=== PATIENT | male | born 1955 | race Caucasian/White ===

== ENCOUNTER → 2023-10-03 13:02 | Outpatient (REF) | payer MEDICARE, SELFPAY ==
[2023-10-03 16:04] LABS: % Basophils 0.6 % (0-2); % Eosinophils 6.8 % (0-6); % Immature Granulocytes 0.5 % (0-0.5); % Lymphocytes 21.1 % (20.5-51.1); % Monocytes 10.8 % (1.7-9.3); % Neutrophils 60.2 % (42.2-75.2); Absolute Basophils 0.1 10^3/uL (0-0.2); Absolute Eosinophils 0.6 10^3/uL (0-0.7); Absolute Immature Granulocytes 0.1 10^3/uL (0-0.05); Absolute Neutrophils 5.6 10^3/uL (1.4-6.5); Hematocrit 42.9 % (39.0-52.0); Mean Corp Hgb Conc. 32.6 g/dL (33.0-37.0); Mean Corpuscular Volume 95.1 fL (80.0-94.0); Nucleated Red Blood Cells % 0 % (-); Platelet Count 172 10^3/uL (130-400); Red Blood Cell Count 4.51 10^6/uL (4.70-6.10); Red Cell Dist. Width 14.3 % (11.5-14.5); White Blood Cell Count 9.2 10^3/uL (4.8-10.8)
[2023-10-03 16:28] LABS: Iron 92 ug/dl (49-181)
[2023-10-03 16:37] LABS: Percent Saturation 34 % (20-50); Total Iron Binding Capacity 265 ug/dl (261-462)
[2023-10-03 17:03] LABS: Ferritin 61.1 ng/ml (17.9-464.0)
[2023-10-03 17:34] LABS: Folate 2.9 ng/ml (2.76-20); Vitamin B12 368 pg/ml (239-931)
== END ==
LOC: HWLAB 13:02
PROVIDERS: ATTENDING PHYSICIAN Internal Medicine Hematology & Oncology; FAMILY PHYSICIAN Family Medicine
DX: D50.9 Iron deficiency anemia, unspecified (principal); D51.9 Vitamin B12 deficiency anemia, unspecified; I48.0 Paroxysmal atrial fibrillation
CPT/HCPCS: 36415; 82607; 82728; 82746; 83540; 83550; 85025

== ENCOUNTER → 2024-01-16 13:45 | Outpatient (REF) | payer MEDICARE, SELFPAY ==
[2024-01-16 15:40] LABS: % Basophils 0.8 % (0-2); % Eosinophils 8.9 % (0-6); % Immature Granulocytes 0.4 % (0-0.5); % Lymphocytes 24.7 % (20.5-51.1); % Monocytes 14.7 % (1.7-9.3); % Neutrophils 50.5 % (42.2-75.2); Absolute Basophils 0.1 10^3/uL (0-0.2); Absolute Eosinophils 0.8 10^3/uL (0-0.7); Absolute Lymphocytes 2.3 10^3/uL (1.2-3.4); Absolute Monocytes 1.4 10^3/uL (0.1-0.6); Absolute Neutrophils 4.8 10^3/uL (1.4-6.5); Hemoglobin 13.4 g/dL (13.0-18.0); Mean Corp Hgb Conc. 33.5 g/dL (33.0-37.0); Mean Corpuscular Hgb 30.7 pg (27.0-31.0); Mean Corpuscular Volume 91.5 fL (80.0-94.0); Mean Platelet Volume 12.1 fL (7.4-10.4); Nucleated Red Blood Cells % 0 % (-); Platelet Count 205 10^3/uL (130-400); Red Blood Cell Count 4.37 10^6/uL (4.70-6.10); Red Cell Dist. Width 14.7 % (11.5-14.5); White Blood Cell Count 9.4 10^3/uL (4.8-10.8)
[2024-01-16 15:56] LABS: Iron 69 ug/dl (49-181)
[2024-01-16 16:06] LABS: Erythrocyte Sed Rate 20 mm/hour (0-20); Percent Saturation 26 % (20-50); Total Iron Binding Capacity 260 ug/dl (261-462)
[2024-01-16 16:27] LABS: Ferritin 44.1 ng/ml (17.9-464.0)
[2024-01-16 16:58] LABS: Folate 2.1 ng/ml (2.76-20); Vitamin B12 357 pg/ml (239-931)
== END ==
LOC: HWLAB 13:45
PROVIDERS: ATTENDING PHYSICIAN Internal Medicine Hematology & Oncology; FAMILY PHYSICIAN Family Medicine
DX: D50.9 Iron deficiency anemia, unspecified (principal); D51.9 Vitamin B12 deficiency anemia, unspecified
CPT/HCPCS: 36415; 82607; 82728; 82746; 83540; 83550; 85025; 85652

== ENCOUNTER → 2024-05-03 13:25 | Outpatient (REF) | payer MEDICARE, SELFPAY ==
[2024-05-03 14:06] LABS: % Basophils 0.8 % (0-2); % Eosinophils 3.9 % (0-6); % Immature Granulocytes 0.9 % (0-0.5); % Monocytes 10.4 % (1.7-9.3); Absolute Basophils 0.1 10^3/uL (0-0.2); Absolute Eosinophils 0.4 10^3/uL (0-0.7); Absolute Immature Granulocytes 0.1 10^3/uL (0-0.05); Absolute Lymphocytes 1.9 10^3/uL (1.2-3.4); Absolute Neutrophils 6.4 10^3/uL (1.4-6.5); Hematocrit 42.3 % (39.0-52.0); Hemoglobin 13.9 g/dL (13.0-18.0); Mean Corp Hgb Conc. 32.9 g/dL (33.0-37.0); Mean Corpuscular Hgb 29.1 pg (27.0-31.0); Mean Corpuscular Volume 88.5 fL (80.0-94.0); Mean Platelet Volume 11.1 fL (7.4-10.4); Nucleated Red Blood Cells % 0 % (-); Platelet Count 188 10^3/uL (130-400); Red Blood Cell Count 4.78 10^6/uL (4.70-6.10); White Blood Cell Count 9.9 10^3/uL (4.8-10.8)
[2024-05-03 14:41] LABS: Iron 116 ug/dl (49-181)
[2024-05-03 14:50] LABS: Percent Saturation 40 % (20-50); Total Iron Binding Capacity 283 ug/dl (261-462)
[2024-05-03 15:15] LABS: Ferritin 42.1 ng/ml (17.9-464.0)
[2024-05-03 15:46] LABS: Folate > 20.0 ng/ml (2.76-20); Vitamin B12 419 pg/ml (239-931)
== END ==
LOC: REG 13:25
PROVIDERS: ATTENDING PHYSICIAN Internal Medicine Hematology & Oncology; FAMILY PHYSICIAN Family Medicine
DX: D50.9 Iron deficiency anemia, unspecified (principal); D51.9 Vitamin B12 deficiency anemia, unspecified; D52.9 Folate deficiency anemia, unspecified; I48.0 Paroxysmal atrial fibrillation
CPT/HCPCS: 36415; 82607; 82728; 82746; 83540; 83550; 85025

== ENCOUNTER → 2024-07-30 13:26 | Outpatient (REF) | payer MEDICARE, SELFPAY ==
[2024-07-30 15:27] LABS: % Basophils 0.4 % (0-2); % Immature Granulocytes 1.9 % (0-0.5); % Lymphocytes 23.9 % (20.5-51.1); % Monocytes 11.2 % (1.7-9.3); % Neutrophils 61.6 % (42.2-75.2); Absolute Basophils 0.1 10^3/uL (0-0.2); Absolute Eosinophils 0.2 10^3/uL (0-0.7); Absolute Immature Granulocytes 0.3 10^3/uL (0-0.05); Absolute Lymphocytes 3.6 10^3/uL (1.2-3.4); Absolute Monocytes 1.7 10^3/uL (0.1-0.6); Absolute Neutrophils 9.3 10^3/uL (1.4-6.5); Hemoglobin 14.5 g/dL (13.0-18.0); Mean Corp Hgb Conc. 32.2 g/dL (33.0-37.0); Mean Corpuscular Hgb 30.1 pg (27.0-31.0); Mean Corpuscular Volume 93.6 fL (80.0-94.0); Mean Platelet Volume 11.4 fL (7.4-10.4); Nucleated Red Blood Cells % 0 % (-); Platelet Count 203 10^3/uL (130-400); Red Blood Cell Count 4.81 10^6/uL (4.70-6.10); Red Cell Dist. Width 14.3 % (11.5-14.5)
[2024-07-30 15:47] LABS: Iron 124 ug/dl (49-181)
[2024-07-30 15:56] LABS: Percent Saturation 44 % (20-50); Total Iron Binding Capacity 281 ug/dl (261-462)
[2024-07-30 16:53] LABS: Folate > 20.0 ng/ml (2.76-20); Vitamin B12 413 pg/ml (239-931)
== END ==
LOC: HWLAB 13:26
PROVIDERS: ATTENDING PHYSICIAN Internal Medicine Hematology & Oncology; FAMILY PHYSICIAN Family Medicine
DX: D50.9 Iron deficiency anemia, unspecified (principal); D51.9 Vitamin B12 deficiency anemia, unspecified; D52.9 Folate deficiency anemia, unspecified
CPT/HCPCS: 36415; 82607; 82728; 82746; 83540; 83550; 85025

== ENCOUNTER → 2024-08-12 15:56 | Outpatient (REF) | payer MEDICARE, SELFPAY | LOC: HWRCS 15:56 | PROVIDERS: ATTENDING PHYSICIAN Internal Medicine Cardiovascular Disease; FAMILY PHYSICIAN Family Medicine | DX: I48.0 Paroxysmal atrial fibrillation (principal) | CPT/HCPCS: 93306 ==

== ENCOUNTER → 2024-12-18 14:43 | Outpatient (REF) | payer MEDICARE, SELFPAY | LOC: HWRAD 14:43 | PROVIDERS: ATTENDING PHYSICIAN Internal Medicine; FAMILY PHYSICIAN Family Medicine | DX: R91.1 Solitary pulmonary nodule (principal) | CPT/HCPCS: 71250 ==

== ENCOUNTER → 2025-02-14 12:27 | Outpatient (REF) | payer MEDICARE, SELFPAY ==
[2025-02-14 15:55] LABS: % Basophils 0.7 % (0-2); % Eosinophils 8.2 % (0-6); % Immature Granulocytes 0.7 % (0-0.5); % Lymphocytes 19.5 % (20.5-51.1); % Monocytes 11.2 % (1.7-9.3); % Neutrophils 59.7 % (42.2-75.2); Absolute Basophils 0.1 10^3/uL (0-0.2); Absolute Eosinophils 0.7 10^3/uL (0-0.7); Absolute Immature Granulocytes 0.1 10^3/uL (0-0.05); Absolute Lymphocytes 1.7 10^3/uL (1.2-3.4); Absolute Neutrophils 5.3 10^3/uL (1.4-6.5); Hematocrit 36.9 % (39.0-52.0); Hemoglobin 11.8 g/dL (13.0-18.0); Mean Corpuscular Hgb 29.5 pg (27.0-31.0); Mean Corpuscular Volume 92.3 fL (80.0-94.0); Mean Platelet Volume 12.2 fL (7.4-10.4); Nucleated Red Blood Cells % 0 % (-); Platelet Count 198 10^3/uL (130-400); Red Cell Dist. Width 14.2 % (11.5-14.5); White Blood Cell Count 8.9 10^3/uL (4.8-10.8)
[2025-02-14 16:31] LABS: Iron 74 ug/dl (49-181)
[2025-02-14 16:41] LABS: Percent Saturation 22 % (20-50); Total Iron Binding Capacity 326 ug/dl (261-462)
[2025-02-14 17:59] LABS: Ferritin 20.3 ng/ml (17.9-464.0)
[2025-02-14 18:30] LABS: Folate > 20.0 ng/ml (2.76-20); Vitamin B12 276 pg/ml (239-931)
== END ==
LOC: HWLAB 12:27
PROVIDERS: ATTENDING PHYSICIAN Nurse Practitioner Adult Health; FAMILY PHYSICIAN Family Medicine
DX: D50.9 Iron deficiency anemia, unspecified (principal); D51.9 Vitamin B12 deficiency anemia, unspecified; D52.9 Folate deficiency anemia, unspecified
CPT/HCPCS: 36415; 82607; 82728; 82746; 83540; 83550; 85025

== ENCOUNTER 2025-03-05 16:25 | Outpatient (RCR) | payer MEDICARE, SELFPAY ==
[2025-03-05 13:47] LABS: Hematocrit 38.1 % (39.0-52.0); Hemoglobin 12.4 g/dL (13.0-18.0); Mean Corp Hgb Conc. 32.5 g/dL (33.0-37.0); Mean Corpuscular Volume 91.4 fL (80.0-94.0); Platelet Count 203 10^3/uL (130-400); Red Cell Dist. Width 14.3 % (11.5-14.5)
== END 2025-04-03 23:59 | disposition home or self-care (01) ==
LOC: OID 16:25
PROVIDERS: ATTENDING PHYSICIAN Internal Medicine Hematology & Oncology
DX: D50.9 Iron deficiency anemia, unspecified (principal); D51.9 Vitamin B12 deficiency anemia, unspecified; D52.9 Folate deficiency anemia, unspecified
CPT/HCPCS: 85025

== ENCOUNTER → 2025-04-28 13:35 | Outpatient (REF) | payer MEDICARE, SELFPAY ==
[2025-04-28 16:19] LABS: Hematocrit 36.6 % (39.0-52.0); Hemoglobin 11.7 g/dL (13.0-18.0); Mean Corp Hgb Conc. 32.0 g/dL (33.0-37.0); Mean Corpuscular Volume 93.6 fL (80.0-94.0); Nucleated Red Blood Cells % 0 % (-); Platelet Count 263 10^3/uL (130-400); Red Cell Dist. Width 15.3 % (11.5-14.5)
[2025-04-28 16:40] LABS: Iron 97 ug/dl (49-181)
[2025-04-28 16:49] LABS: Total Iron Binding Capacity 253 ug/dl (261-462)
[2025-04-28 17:17] LABS: Ferritin 154.0 ng/ml (17.9-464.0)
[2025-04-28 17:48] LABS: Folate > 20.0 ng/ml (2.76-20); Vitamin B12 382 pg/ml (239-931)
== END ==
LOC: HWLAB 13:35
PROVIDERS: ATTENDING PHYSICIAN Internal Medicine Hematology & Oncology; FAMILY PHYSICIAN Family Medicine
DX: D50.9 Iron deficiency anemia, unspecified (principal); D51.9 Vitamin B12 deficiency anemia, unspecified; D52.9 Folate deficiency anemia, unspecified
CPT/HCPCS: 82607; 82728; 82746; 83540; 83550; 85025